=== PATIENT | male | born 1990 | race African-American/Black ===

== ENCOUNTER 2021-10-24 21:20 | Emergency (ER) | payer SELFPAY ==
[~2021-10-24] VITALS: Ht 185.4 cm; Wt 67.6 kg
[2021-10-24 22:01] VITALS: BP 131/85
--- NOTE | 2021-10-24 22:04 | NUR ---
BIBS FOR C/O "MY TONGUE IS STICHED TO MY GUM". HAD WISDOM TEETH EXTRACTION X4 TODAY. PATIENT ALERT AND ORIENTED X3. AMBULATORY WITH NON LABORED BREATHING IN BED 03 ON MONITOR PAUL SERRA.
--- NOTE | 2021-10-24 22:20 | NUR ---
Patient discharged to home in stable condition. Written and verbal after care instructions given. Patient verbalizes understanding of instruction.
== END 2021-10-24 22:24 | disposition home or self-care (01) ==
LOC: ER 21:23
DX: Z48.814 Encounter for surgical aftercare following surgery on the teeth or oral cavity (principal)